=== PATIENT | male | born 1975 | race Hispanic/Latino ===

== ENCOUNTER → 2024-10-31 | Day surgery (SDC) | payer OTHER ==
[~2024-10-31] MED LIST: FENTANYL CITRATE/PF 100MCG/2 ML INJ ONE; LIDOCAINE HCL 2% LOCAL INJ 5 ML SDV VIAL INJ ONE; ONDANSETRON HCL INJ 2MG/ML 2ML 2 MG/ML VIAL ONE; PROPOFOL IV EMULSION 50 ML IV ONE; VITAMIN C1000 MG PO; VITAMIN D31250 MCG PO; ZINC CHELATED50 M2 PO
[2024-10-31] MEDS: LACTATED RINGER'S 1,000 ML ONE (08:32)
[2024-10-31 10:31] VITALS: TEMP 97.2
[2024-10-31 10:55] VITALS: BP 118/71; PULSE 61; RESP 18; O2SAT 100
== END | disposition home or self-care (01) ==
LOC: OR 07:21
PROVIDERS: ATTEND Internal Medicine Gastroenterology
DX: Z12.11 Encounter for screening for malignant neoplasm of colon (principal); D12.0 Benign neoplasm of cecum; D12.4 Benign neoplasm of descending colon; K64.8 Other hemorrhoids; E55.9 Vitamin D deficiency, unspecified; E78.5 Hyperlipidemia, unspecified; M54.9 Dorsalgia, unspecified; Z01.810 Encounter for preprocedural cardiovascular examination
CPT/HCPCS: 45384; 45385; 93005; J2003; J2405; J2704; J3010; J7121